=== PATIENT | female | born 1955 | race Two or more races ===

== ENCOUNTER → 2017-04-04 | Outpatient (CLI) | payer BC ==
[2016-10-14 09:09] VITALS: BP 169/98
[~2017-04-04] MED LIST: ARAVA20 MG PO; ASCO100T4 PO; ASPI-630 PO; CHOL2000 PO; CIPR500S3 PO; CYCL10TA2 PO; DARB60DI SQ; DOXY100T PO; ENOX40DI SQ; FAMO20TA5 PO; FLUT16SP; FOLI0.4T2 PO; FOLI1TAB16 PO; FURO20TA3 PO; HYDR-2766 PO; IBUP-1007 PO; INDO75CA3 PO; INFL100V IV; LACT1CAP8 PO; LOSA100T6 PO; MELO7.5T29 PO; METR500T8 PO; MIRA25TA PO; OMEG500C PO; OMEP40CA5 PO; ONDA4TAB7 PO; PRED-220 PO; PRED20TA PO; PRED5TAB PO; PREG50CA PO; UBID30CA9 PO; WARF2TAB7
--- NOTE | 2017-04-04 14:52 | RAD ---
CT study of the chest without contrast Clinical indications: Shortness of breath. Chest pain. Technique: Noncontrast helical CT scanning of the chest was performed. Without IV contrast, the sensitivity to detect organ pathology is decreased. PQRS Compliance Statement: One or more of the following individualized dose reduction techniques were utilized for this examination: 1. Automated exposure control 2. Adjustment of the mA and/or kV according to patient size 3. Use of iterative reconstruction technique Comparison: CT of the chest dated July 08, 2016. Findings: No focal aneurysmal dilatation of the thoracic aorta is seen. The heart size is within normal limits. No pericardial effusion is seen. No enlarged thoracic lymphadenopathy is seen. No adrenal mass is evident. Diffuse fatty infiltration of the liver is seen. Chronic interstitial lung infiltrates are seen within both lung bases which may represent chronic interstitial pulmonary fibrosis. Otherwise no new lung consolidation or lung mass is seen. No pleural effusion or pneumothorax is seen. The proximal bronchial tree is patent. No osteolytic process is seen. IMPRESSION: Mild chronic interstitial pulmonary fibrosis with a lower lung zone predominance. No new lung infiltrate is seen. Fatty infiltration of the liver.
== END | disposition home or self-care (01) ==
LOC: CT 10:36
PROVIDERS: ATTEND Internal Medicine Pulmonary Disease
DX: J84.112 Idiopathic pulmonary fibrosis (principal); K76.0 Fatty (change of) liver, not elsewhere classified
CPT/HCPCS: 71250

== ENCOUNTER → 2017-06-11 | Outpatient (CLI) | payer BC ==
[2016-10-14 09:09] VITALS: BP 169/98
--- NOTE | 2017-06-11 15:49 | CARD ---
APPROVED REPORT EXAM: Two-dimensional and M-mode echocardiogram with Doppler and color Doppler. Other Information Quality : Average Rhythm : NSR INDICATION Peripheral Edema 2D DIMENSIONS RVDd2.4 (2.9-3.5cm)Left Atrium(2D)3.3 (1.6-4.0cm) IVSd1.1 (0.7-1.1cm)Aortic Root(2D)3.1 (2.0-3.7cm) LVDd4.5 (3.9-5.9cm)LVOT Diameter2.0 (1.8-2.4cm) PWd1.1 (0.7-1.1cm)LVDs2.5 (2.5-4.0cm) FS (%) 34.5 %SV69.2 ml LVEF(%)66.0 (>50%) Aortic Valve AoV Peak Balwinder.180.1cm/sAoV VTI30.0cm AO Peak GR.13.0mmHgLVOT Peak Balwinder.135.2cm/s LVOT VTI 25.73cmAO Mean GR.7mmHg HEMANTH (VMAX)2.72eo0BWG (VTI)2.75cm2 Mitral Valve MV E Vjzqmxdc73.1cm/sMV DECEL [id number] MV A Zcqyrsjs615.1cm/sMV GEE40ui E/A Ratio0.8MV A Uymomysv82ve MVA (PHT)3.18cm2 TDI E/Lateral E'7.0E/Medial E'7.8 Pulmonary Valve PV Peak Ufvblmxh812.1cm/sPV Peak Grad.6mmHg RVOT VTI15.0cm Tricuspid Valve TR P. Heeipjmx155we/sRAP [id number] TR Peak Gr.89teEqGNLO75zmCp LEFT VENTRICLE The left ventricle is normal size. There is normal left ventricular wall thickness. Left ventricle sy stolic function is normal. The Ejection Fraction is 65-70%. There is normal LV segmental wall motion. The left ventricular diastolic function and filling is normal for age. There is no ventricular septa l defect visualized. RIGHT VENTRICLE The right ventricle is normal size. The right ventricular systolic function is normal. ATRIA The left atrium size is normal. The right atrium size is normal. The interatrial septum is intact wit h no evidence for an atrial septal defect or patent foramen ovale as noted on 2-D or Doppler imaging. AORTIC VALVE The aortic valve is normal in structure and function. The aortic valve is trileaflet. Doppler and Col or Flow revealed no significant aortic regurgitation. There is no significant aortic valvular stenosi s. MITRAL VALVE The mitral valve is normal in structure and function. There is no mitral valve stenosis. Doppler and Color Flow revealed no mitral valve regurgitation noted. TRICUSPID VALVE The tricuspid valve is normal in structure and function. Doppler and Color Flow revealed trace to mil d tricuspid regurgitation. The PA pressure was estimated at 38 mmHg. There is no tricuspid valve sten osis. PULMONIC VALVE The pulmonic valve is not well visualized. Doppler and Color Flow revealed no pulmonic valvular regur gitation. There is no pulmonic valvular stenosis. GREAT VESSELS The aortic root is normal in size. Normal pulmonary venous flow (Doppler). The IVC is normal in size and collapses >50% with inspiration. PERICARDIAL EFFUSION There is no evidence of significant pericardial effusion. Critical Notification Critical Value: No <Conclusion> Left ventricle systolic function is normal. The Ejection Fraction is 65-70%. There is normal LV segmental wall motion. Trace to mild tricuspid regurgitation. The PA pressure was estimated at 38 mmHg. There is no evidence of significant pericardial effusion.
== END | disposition home or self-care (01) ==
LOC: ECHO 13:33
PROVIDERS: ATTEND Internal Medicine
DX: I07.1 Rheumatic tricuspid insufficiency (principal)
CPT/HCPCS: 93306

== ENCOUNTER → 2018-01-09 | Outpatient (CLI) | payer BC | END | disposition home or self-care (01) | LOC: FMSRAD 10:16 | DX: M77.32 Calcaneal spur, left foot (principal); M25.562 Pain in left knee | CPT/HCPCS: 73562; 73610 ==